=== PATIENT | female | born 1930 ===

== ENCOUNTER 2018-10-29 17:22 | Inpatient (IN) | payer MEDICARE, MEDICAID ==
[~2018-10-29] VITALS: Ht 157.5 cm; Wt 93.5 kg
[2018-10-29 23:30] VITALS: BP 95/66
--- NOTE | 2018-10-29 23:40 | NUR ---
Patient arrived from [place] via EMS to 2311, connected to monitor. Admission assessment completed per flowsheet, patient resting in bed with eyes open. Patient AO x4, answers appropriately/follows instructions. S1/S2 noted Controlled Afib on telemetry with HR 93, rare PAC with no pacing noted on telemetry. Pacemaker placed L upper chest 1 month ago, dressing CDI. L upper chest hemosplit dressing CDI, locked. Breathing is even/unlabored on 2L via NC with O2 sat 99%, lung sounds clear bilateral upper and mid with diminished lower. Abdomen is round/soft with bowel sounds active x4, non-tender. All pulses palpable with cap refill < 3 sec, skin warm/dry. Denies pain or other needs at this time, see flowsheet for details. Dr Russell paged to notify of patient arrival, awaiting return call. No further needs at this time, all VSS and will continue to monitor.
[2018-10-29 23:45] VITALS: BP 92/61
[2018-10-30] VITALS (94 sets, daily range): BP systolic 69–125; BP diastolic 22–96; Ht 157.5 cm; Wt 93.5 kg
--- NOTE | 2018-10-30 00:57 | NUR ---
Dr Howell called to notify of patient arrival, left requesting return call.
--- NOTE | 2018-10-30 01:20 | NUR ---
Spoke to Lori Carcamo via phone with new orders received, Nephrology paged to notify of consult.
--- NOTE | 2018-10-30 02:55 | NUR ---
Reassessment completed per flowsheet, no changes from previous assessment. S1/S2 noted Controlled Afib on telemetry with HR 84. Breathing is shallow on 2L via NC with O2 sat 97%, lung sounds clear bialteral upper and mid with diminished lower. L upper chest pacemaker site dressing CDI, R upper chest hemosplit locked with dressing CDI. All pulses palpable with cap refill < 3 sec, skin warm/dry. Denies pain or other needs at this time, see flowsheet for details. All VSS and will continue to montior.
[2018-10-30 04:15] LABS: BASOPHILS 0.2 % (0-2); EOSINOPHILS 0.6 % (0-7); HEMATOCRIT 23.1 % (36.0-48.0); HEMOGLOBIN 7.9 g/dL (12-16); IMMATURE GRANULOCYTES 0.2 % (0-5); LYMPHOCYTES 24.3 % (15-50); MCH 33.3 pg (26.0-34.0); MCHC 34.2 g/dL (31.0-37.0); MCV 97.5 fL (80.0-100.0); MONOCYTES 12.5 % (2-11); NEUTROPHILS 62.2 % (40-80); PLATELET COUNT 70 10x3/uL (130-400); RBC 2.37 10x6/uL (4.00-5.40); RDW 16.8 % (11.5-14.5); WBC 6.3 10x3/uL (4.8-10.8)
[2018-10-30 04:34] LABS: ALBUMIN 2.8 g/dL (3.4-5.0); ANION GAP 11.3 mmol/L (8-16); BILIRUBIN - TOTAL 2.24 mg/dL (0.2-1.3); CALCIUM 8.3 mg/dL (8.5-10.1); CARBON DIOXIDE 29.1 mmol/L (21.0-32.0); CREATININE - SERUM 3.6 mg/dL (0.6-1.3); POTASSIUM - SERUM 5.4 mmol/L (3.5-5.1); PROTEIN - SERUM 6.6 g/dL (6.4-8.2)
--- NOTE | 2018-10-30 05:00 | NUR ---
Patient sleeping in bed with eyes closed, no s/s of distress at this time. Denies pain or other needs, all VSS and will continue to monitor.
--- NOTE | 2018-10-30 07:05 | NUR ---
REPORT RECEIEVED. ASSESSMENT COMPLETE PER FLOW SHEET. VSS. NO NEW CHANGES PT RESTING COMFORTABLY WILL CONTINUE TO MONITOR
--- NOTE | 2018-10-30 07:15 | NUR ---
DR GAMBINO AT BEDSIDE. NEW ORDERS RECEIVED.
[2018-10-30 08:32] LABS: BASOPHILS 0.2 % (0-2); EOSINOPHILS 1.1 % (0-7); HEMATOCRIT 22.9 % (36.0-48.0); HEMOGLOBIN 7.9 g/dL (12-16); IMMATURE GRANULOCYTES 0.2 % (0-5); LYMPHOCYTES 23.6 % (15-50); MCH 33.9 pg (26.0-34.0); MCHC 34.5 g/dL (31.0-37.0); MCV 98.3 fL (80.0-100.0); MEAN PLATELET VOLUME 11.2 fL (7.4-10.4); MONOCYTES 14.3 % (2-11); NEUTROPHILS 60.6 % (40-80); PLATELET COUNT 76 10x3/uL (130-400); RBC 2.33 10x6/uL (4.00-5.40); RDW 17.3 % (11.5-14.5); WBC 5.3 10x3/uL (4.8-10.8)
[2018-10-30 08:43] LABS: ALBUMIN 2.9 g/dL (3.4-5.0); ANION GAP 10.7 mmol/L (8-16); BILIRUBIN - TOTAL 2.31 mg/dL (0.2-1.3); CALCIUM 8.4 mg/dL (8.5-10.1); CARBON DIOXIDE 29.6 mmol/L (21.0-32.0); CREATININE - SERUM 3.6 mg/dL (0.6-1.3); PHOSPHOROUS 4.3 mg/dL (2.5-4.9); POTASSIUM - SERUM 5.3 mmol/L (3.5-5.1); PROTEIN - SERUM 6.6 g/dL (6.4-8.2); VANCOMYCIN - RANDOM 0.6 ug/mL (10.0-20.0)
[2018-10-30 08:49] LABS: PLATELET ESTIMATE DECREASED
--- NOTE | 2018-10-30 09:20 | NUR ---
FAMILY CALLED GIVEN JOANAATE.
[2018-10-30] MEDS ORDERED: BUMEX2 MG PO (09:31)
[2018-10-30] MEDS ORDERED: PROTONIX40 MG PO (09:31)
[2018-10-30] MEDS ORDERED: BAYER CHEWABLE81 MG PO (09:31)
[2018-10-30] MEDS ORDERED: JANUVIA100 MG PO (09:32)
[2018-10-30] MEDS ORDERED: ALBUTEROL1.25 MG/3 INH (09:35)
--- NOTE | 2018-10-30 10:20 | NUR ---
DR KAM AT BEDSIDE. CARLY SINGLETON.
--- NOTE | 2018-10-30 11:05 | NUR ---
REASSESSMENT COMPLETE PER FLOW SHEET. VSS. NO NEW CHANGES PT RESTING COMFORTABLY WILL CONTINUE TO MONTIOR
[2018-10-30 11:49] LABS: INR 1.39 (0.85-1.17); PROTIME 16.5 SECONDS (11.6-15.0)
--- NOTE | 2018-10-30 13:05 | NUR ---
PT SLEEPING COMFORTABLY DENIES NEEDS GIVEN WATE PER REQUEST. VSS WILL CONTINUE TO MONITOR
--- NOTE | 2018-10-30 14:18 | NUR ---
PT ASSISTED ONTO BEDPAN
--- NOTE | 2018-10-30 15:30 | NUR ---
REASSESSMENT COMPLETE, NO CHANGES NOTED, PT RESTING COMFORTABLY AT THIS TIME, WILL CON'T TO MONITOR
--- NOTE | 2018-10-30 16:08 | MORECARE ---
CASE MANAGEMENT DISCHARGE SUMMARY PATIENT: JORGE CORDERO UNIT: [id number] ADM DATE: 10/29/18 AGE: 88 : [birth year] SEX: F ROOM/BED: D.2311 AUTHOR: SHIRLEY MEDEIROS PHYSICIAN: REFERRING PHYSICIAN: NANO LEAVITT MD DATE OF SERVICE: 10/30/18 Discharge Plan Patient Name: JORGE CORDERO Facility: [facility]:[place] : 1930 Planned Disposition: Anticipated Discharge Date: Discharge Date: Expected LOS: Initial Reviewer: [email or web address] Initial Review Date: 10/30/2018 Generated: 10/30/18 5:08 pm Patient Name: JORGE CORDERO Page [id number] at 1608 All edits/amendments must be made on the electronic document DICTATION DATE: 10/30/181606 COMPOUND COATING MACHINE OFFBEARER: FOREST 10/30/181606 RPT#: [id number] DC DATE: STATUS: ADM IN [facility] [address] [place] [address] END OF REPORT
--- NOTE | 2018-10-30 16:18 | MORECARE ---
CASE MANAGEMENT DISCHARGE SUMMARY PATIENT: JORGE CORDERO UNIT: [id number] ADM DATE: 10/29/18 AGE: 88 : [birth year] SEX: F ROOM/BED: D.2311 AUTHOR: SHIRLEY MEDEIROS PHYSICIAN: REFERRING PHYSICIAN: NANO LEAVITT MD DATE OF SERVICE: 10/30/18 Discharge Plan Patient Name: JORGE CORDERO [facility] [facility] 1930 Planned Disposition: Anticipated Discharge Date: Discharge Date: Expected LOS: Initial Reviewer: [email or web address] Initial Review Date: 10/30/2018 Generated: 10/30/18 5:18 pm DCPIA - Discharge Planning Initial Assessment Updated by [email or web address]: Savanna Dorsey on 10/30/18 4:12 pm * Is the patient Alert and Oriented? Yes * How many steps to enter\exit or inside your home? RAMP * PCP FREDI JOVEL * Pharmacy [facility] * Preadmission Environment Home with Family * ADLs Partial Dependent * Partial ADLs (Assistance needed) Ambulation * Other Equipment HOME 02, NEBULIZER , WALKER, CANE, TRAVEL W/C * List name and contact numbers for known caregivers / representatives who currently or will assist patient after discharge: daughter - [phone] * Verbal permission to speak to the caregivers and representatives has been obtained from the patient. Yes * Community resources currently utilized None * Additional services required to return to the preadmission environment? No * Can the patient safely return to the preadmission environment? Yes * Has this patient been hospitalized within the prior 30 days at any hospital? Yes Last DP export: 10/30/18 3:08 p Patient Name: JORGE CORDERO Page 44699 at 1618 All edits/amendments must be made on the electronic document DICTATION DATE: 10/30/181617 SWITCHBOARD RECEPTIONIST: FOREST 10/30/181617 RPT#: [id number] DC DATE: STATUS: ADM IN [facility] [address] [place] [address] END OF REPORT
--- NOTE | 2018-10-30 16:30 | MORECARE ---
CASE MANAGEMENT DISCHARGE SUMMARY PATIENT: JORGE CORDERO UNIT: [id number] ADM DATE: 10/29/18 AGE: 88 : [birth year] SEX: F ROOM/BED: D.2311 AUTHOR: WALDEMARDOC PHYSICIAN: REFERRING PHYSICIAN: NANO LEAVITT MD DATE OF SERVICE: 10/30/18 Discharge Plan Patient Name: JORGE CORDERO Facility: [facility]:[place] : 1930 Planned Disposition: Anticipated Discharge Date: Discharge Date: Expected LOS: Initial Reviewer: [email or web address] Initial Review Date: 10/30/2018 Generated: 10/30/18 5:30 pm Comments DCP- Discharge Planning Updated by [email or web address]: Savanna Dorsey on 10/30/18 3:[address] Patient Name: JORGE CORDERO Admission Status: Urgent Accout number: [id number] Admission Date: 10-29-2018 : 1930 Admission Diagnosis: Attending: NANO LEAVITT Current LOS: 1 Anticipated DC Date: Planned Disposition: Primary Insurance: [facility] MEDICARE SOLUTIONS Discharge Planning Comments: CM met with patient at bedside. Patient stated she lives with her daughter. Patient states she has been in and out of hospital a lot recently. Patient states she plans to return to her home. Patient states she has home 02, nebulizer, walker, cane, and travel wheelchair. Patient states she has had Home Health in past but currently not under their care. Patient denies any discharge needs at this time. CM will continue to follow and assist as needed with discharge planning / needs. Tube Builder: Savanna Dorsey DCPIA - Discharge Planning Initial Assessment Updated by [email or web address]: Savanna Dorsey on 10/30/18 4:12 pm * Is the patient Alert and Oriented? Yes * How many steps to enter\exit or inside your home? RAMP * PCP FREDI JOVEL * Pharmacy [facility] * Preadmission Environment Home with Family * ADLs Partial Dependent * Partial ADLs (Assistance needed) Ambulation * Other Equipment HOME 02, NEBULIZER , WALKER, CANE, TRAVEL W/C * List name and contact numbers for known caregivers / representatives who currently or will assist patient after discharge: DAUGHTER - [phone] * Verbal permission to speak to the caregivers and representatives has been obtained from the patient. Yes * Community resources currently utilized None * Additional services required to return to the preadmission environment? No * Can the patient safely return to the preadmission environment? Yes * Has this patient been hospitalized within the prior 30 days at any hospital? Yes Last DP export: 10/30/18 3:18 p Patient Name: JORGE CORDERO Page 82712 at 1630 All edits/amendments must be made on the electronic document DICTATION DATE: 10/30/181628 HEALTH PRACTICE MANAGER: FOREST 10/30/181628 RPT#: [id number] DC DATE: STATUS: ADM IN [facility] [address] [place] [address] END OF REPORT
--- NOTE | 2018-10-30 17:30 | NUR ---
HD NURSE AT BEDSIDE, HS STARTED
[2018-10-31] VITALS (65 sets, daily range): BP systolic 64–118; BP diastolic 36–78
[2018-10-31 02:55] LABS: BASOPHILS 0.3 % (0-2); HEMATOCRIT 24.8 % (36.0-48.0); HEMOGLOBIN 8.7 g/dL (12-16); IMMATURE GRANULOCYTES 0.1 % (0-5); LYMPHOCYTES 20.7 % (15-50); MCH 34.5 pg (26.0-34.0); MCHC 35.1 g/dL (31.0-37.0); MCV 98.4 fL (80.0-100.0); MEAN PLATELET VOLUME 11.8 fL (7.4-10.4); MONOCYTES 16.6 % (2-11); NEUTROPHILS 61.3 % (40-80); PLATELET COUNT 52 10x3/uL (130-400); RBC 2.52 10x6/uL (4.00-5.40)
[2018-10-31 03:06] LABS: ALBUMIN 2.9 g/dL (3.4-5.0); ANION GAP 12.1 mmol/L (8-16); BILIRUBIN - TOTAL 2.28 mg/dL (0.2-1.3); CALCIUM 8.5 mg/dL (8.5-10.1); CARBON DIOXIDE 28.6 mmol/L (21.0-32.0); CREATININE - SERUM 2.7 mg/dL (0.6-1.3); MAGNESIUM - SERUM 2.2 mg/dL (1.8-2.4); PHOSPHOROUS 3.5 mg/dL (2.5-4.9); POTASSIUM - SERUM 4.7 mmol/L (3.5-5.1); PROTEIN - SERUM 6.8 g/dL (6.4-8.2)
--- NOTE | 2018-10-31 07:10 | NUR ---
PATIENT IN BED IN LOW FOWLERS POSITION. ALERT AND ORIENTED X4. VITAL SIGNS STABLE AND AFEBRILE. RESPIRATIONS EVEN AND UNLABORED. NO VISUAL CUES OF DISTRESS NOTED. DENIES ANY OTHER NEEDS AT THIS TIME. BED LOW, SIDE RAILS UP X2. CALL LIGHT IN REACH. WILL CONTINUE TO MONITOR.
--- NOTE | 2018-10-31 07:15 | NUR ---
REPORT RECEIVED. ASSESSMENT COMPLETE PER FLOW SHEET. VSS. PT ASSISTED ONTO BEDPAN 75 CC DARK MANUEL VOID NOTED.
--- NOTE | 2018-10-31 07:40 | NUR ---
COMPLETE BB LINEN CHANGE ADM. DENIES FURTHER NEEDS
--- NOTE | 2018-10-31 09:11 | NUR ---
NUTRITION F/U PT SLEEPING. NURSING REPORTS PT WITH 75% INTAKE BREAKFAST. WILL CONTINUE TO PROVIDE DIET, MONITOR PO INTAKE. RD FOLLOWING
--- NOTE | 2018-10-31 10:49 | NUR ---
[place] OFFICE PAGED GIVEN UPDATE REGAURDING CONSULT
--- NOTE | 2018-10-31 11:00 | NUR ---
REASSESSMENT COMPLETE PER FLOW SHEET. VSS. NONEW CHANGES WILL CONTINUE TO MONIOR
[2018-10-31 12:04] LABS: % SATURATION 29 % (15-55); IRON 62 ug/dl (35-150); TOTAL IRON BIND CAPACITY 208 ug/dl (260-445); UNSAT IRON BIND CAPACITY 146 ug/dl (150-375)
--- NOTE | 2018-10-31 13:00 | NUR ---
MATERNAL CHILD NURSE WITH CARDIOLOGY AT BEDSIDE. GIVEN UPDATE. NEW ORDERS RECEIVED.
--- NOTE | 2018-10-31 15:00 | NUR ---
REASSESSMENT COMPLETE PER FLOW SHEET. VSS. NO NEW CHANGES WILL CONTINUE TO MONITOR
--- NOTE | 2018-10-31 17:00 | NUR ---
ATE 75% DINNER. DENIES NEEDS. WILL CONTINUE TO MONITOR
[2018-11-01] VITALS (56 sets, daily range): BP systolic 84–130; BP diastolic 40–81
--- NOTE | 2018-11-01 01:03 | NUR ---
PT REPOSITIONED FOR COMFORT SUPPORTED WITH PILLOWS, BARRIER CREAM APPLIED TO BUTTOCK AREA FOR PT COMFORT, VSS, CONT POC.
[2018-11-01 02:40] LABS: EOSINOPHILS 1.2 % (0-7); HEMATOCRIT 20.5 % (36.0-48.0); LYMPHOCYTES 23.9 % (15-50); MCHC 35.1 g/dL (31.0-37.0); MCV 96.7 fL (80.0-100.0); MEAN PLATELET VOLUME 10.5 fL (7.4-10.4); MONOCYTES 16.6 % (2-11); NEUTROPHILS 54.3 % (40-80); PLATELET COUNT 54 10x3/uL (130-400); RBC 2.12 10x6/uL (4.00-5.40); RDW 16.5 % (11.5-14.5); WBC 7.3 10x3/uL (4.8-10.8)
[2018-11-01 02:41] LABS: HEMOGLOBIN 7.6 g/dL (12-16)
[2018-11-01 02:43] LABS: ALBUMIN 2.6 g/dL (3.4-5.0); ANION GAP 13.2 mmol/L (8-16); BILIRUBIN - TOTAL 1.59 mg/dL (0.2-1.3); CALCIUM 7.9 mg/dL (8.5-10.1); CARBON DIOXIDE 27.8 mmol/L (21.0-32.0); CREATININE - SERUM 3.3 mg/dL (0.6-1.3); MAGNESIUM - SERUM 2.1 mg/dL (1.8-2.4); PHOSPHOROUS 4.6 mg/dL (2.5-4.9); PROTEIN - SERUM 6.3 g/dL (6.4-8.2)
--- NOTE | 2018-11-01 07:00 | NUR ---
REC'D CARE OF PT. A&O X3.
--- NOTE | 2018-11-01 08:13 | NUR ---
UPDATED DAUGHTER VIA PHONE AFTER SPEAKING WITH PT. TO CLARIFY IT WAS OK TO DO SO.
--- NOTE | 2018-11-01 08:30 | NUR ---
REQUESTED BED MEANS. HAD 150 CC CONCENTRATED URINE. PERICARE PERFORMED. PARTIAL LINEN CHANGED. CLWR. CPOC.
--- NOTE | 2018-11-01 10:15 | NUR ---
CONTINUES WITH HD. TITRATING LEVOPHED TO EFFECT.
[2018-11-01 11:11] LABS: FOLATE (FOLIC ACID) - SERUM 14.1 ng/mL (>3.0)
--- NOTE | 2018-11-01 11:50 | NUR ---
LUNCH TRAY SERVED. CONTINUES BEING DIALYSED. LEVOPHED BEING TITRATED TO EFFECT.
--- NOTE | 2018-11-01 12:14 | NUR ---
DIGOXIN GIVEN PER ORDERS.
--- NOTE | 2018-11-01 12:57 | NUR ---
DAUGHTER AT BEDSIDE ASSISTING WITH MEAL.
--- NOTE | 2018-11-01 14:09 | NUR ---
FAMILY AT BEDSIDE. UPDATED BY PT.
--- NOTE | 2018-11-01 15:37 | NUR ---
TITRATING LEVOPHED TO EFFECT.
--- NOTE | 2018-11-01 19:30 | NUR ---
RESUMED CARE OF PT, ASSESSMENT PER FLOWSHEET. PT POSITIONED FOR COMFORT SUPPORTED WITH PILLOWS, CALL LIGHT IN REACH, BED LOW.
[2018-11-01 21:31] LABS: APPEARANCE HAZY (CLEAR); BILIRUBIN NEGATIVE (NEGATIVE); COLOR DK YELLOW (YELLOW); GLUCOSE NEGATIVE (NEGATIVE); KETONE NEGATIVE (NEGATIVE); NITRITE NEGATIVE (NEGATIVE); PROTEIN 1+ mg/dL (NEGATIVE); SPECIFIC GRAVITY 1.025 (1.005-1.020); UROBILINOGEN NORMAL (NORMAL)
[2018-11-01 21:35] LABS: EPITHELIAL CELLS 0-5 /hpf (0-5)
[2018-11-01 21:36] LABS: BACTERIA MANY /hpf (NONE SEEN)
[2018-11-01 21:40] LABS: MUCUS <1+ /lpf (NONE SEEN); YEAST >1+ /hpf (NONE SEEN)
--- NOTE | 2018-11-01 21:45 | NUR ---
PT DAUGHTER CALLED, PASSWORD PROVIDED, UPDATE GIVEN.
[2018-11-01 22:00] LABS: CREATININE - URINE 195.9 mg/dL (30-125)
[2018-11-02] VITALS (36 sets, daily range): BP systolic 72–120; BP diastolic 42–81
--- NOTE | 2018-11-02 00:55 | NUR ---
PT REPOSITIONED FOR COMFORT SUPPORTED WITH PILLOWS, VSS, CONT TO MONITOR.
[2018-11-02 03:38] LABS: BASOPHILS 0.3 % (0-2); EOSINOPHILS 1.2 % (0-7); HEMATOCRIT 23.5 % (36.0-48.0); HEMOGLOBIN 8.1 g/dL (12-16); LYMPHOCYTES 22.9 % (15-50); MCH 33.6 pg (26.0-34.0); MCHC 34.5 g/dL (31.0-37.0); MCV 97.5 fL (80.0-100.0); MEAN PLATELET VOLUME 11.1 fL (7.4-10.4); NEUTROPHILS 59.6 % (40-80); PLATELET COUNT 59 10x3/uL (130-400); RBC 2.41 10x6/uL (4.00-5.40); RDW 16.2 % (11.5-14.5); WBC 6.1 10x3/uL (4.8-10.8)
[2018-11-02 03:55] LABS: ALBUMIN 2.6 g/dL (3.4-5.0); BILIRUBIN - TOTAL 1.51 mg/dL (0.2-1.3); CALCIUM 7.9 mg/dL (8.5-10.1); CARBON DIOXIDE 27.6 mmol/L (21.0-32.0); CREATININE - SERUM 2.9 mg/dL (0.6-1.3); MAGNESIUM - SERUM 2.1 mg/dL (1.8-2.4); PHOSPHOROUS 3.7 mg/dL (2.5-4.9); PROTEIN - SERUM 6.5 g/dL (6.4-8.2)
[2018-11-02 04:01] LABS: ANION GAP 10.4 mmol/L (8-16)
--- NOTE | 2018-11-02 04:26 | NUR ---
COMPLETE BATH AND LINEN CHANGE DONE, BARRIER CREAM APPLIED TO BUTTOCK AREA PER PT REQUEST FOR COMFORT, VSS, CONT TO MONITOR.
--- NOTE | 2018-11-02 08:00 | NUR ---
REC'D EYES CLOSED/ AWAKENS EASILY. ASSESSMENT DONE. C/O ABD DISCOMFORT D/T CONSTIPATION.
--- NOTE | 2018-11-02 08:46 | NUR ---
C/O NAUSEA. ZOFRAN GIVEN.
--- NOTE | 2018-11-02 10:39 | EC ---
PATIENT:JORGE CORDERO DATE OF SERVICE: 10/29/18 SEX: F MEDICAL RECORD: [id number] DATE OF : [birth year] LOCATION:[facility] AGE OF PATIENT: 88 ADMISSION DATE: 10/29/18 REFERRING PHYSICIAN: INTERPRETING PHYSICIAN: MELO GROVES MD ECHOCARDIOGRAM REPORT ECHO CHARGES 4 ECHO COMPLETE Date: 10/30/18 CLINICAL DIAGNOSIS: CHF ECHOCARDIOGRAPHIC MEASUREMENTS (adult normal given) AC root (d.<3.7cm) 2.8 cm LV Septum d (<1.2 cm> 1.9 cm Valve Excursion 1.7 cm LV Septum (systole) 2.0 cm Left Atria (s.<4.0cm> 4.9 cm LVPW d(<1.2cm) 1.4 cm RV (d.<2.3cm) 3.0 cm LVPW (sytole) 1.6 cm LV diastole(<5.6CM) 4.7 cm MV E-F(>70mm/sec) cm LV systole 3.2 cm LVOT Diameter 1.7 cm MV exc.(>10mm) cm Est.ejection fraction (50-75%) % DOPPLER: LVIT cm/sec A cm/sec E 82.0 cm/sec LA cm/sec RVSP 24.1 mmHg LVOT 68.0 cm/sec AOP1/2T m/s Asc. Ao 118 cm/sec RVOT 82.0 cm/sec RA cm/sec PA 67.0 cm/sec AV Gradient Peak 5.6 mmHg AV Mean 3.2 mmHg AV Area 1.0 cm MV Gradient Peak 3.3 mmHg MV Mean 1.2 mmHg MV Area cm COMMENTS: Helicopter Pilot: 1 GLADYS GILOE Crusher Feeder: 3 Dr. Romero TAPE# PACS Pericardial Effusion Y DATE OF SERVICE: Adequate 2-D, color-flow and spectral Doppler, and M-mode. LVH is present. LV internal dimensions are normal. 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 Estimated EF is 30% to 35%. Aortic valve sclerosis without stenosis by Doppler interrogation. Left atrium is dilated at 4.9 cm. Mitral valve is thickened. Mild MR. Right-sided chambers are grossly normal. Moderate TR by color-flow imaging. ECHOCARDIOGRAM REPORT [id number] JORGE CORDERO TRANSINT:[id number] Voice Confirmation ID: [id number] DOCUMENT ID: [id number] MELO GROVES MD at 1039 CC: [id number] DICTATION DATE: 10/30/18 145 SLICER MACHINE OPERATOR: 10/30/181921 ADM IN [facility] [address] [place] [id number]
--- NOTE | 2018-11-02 12:00 | NUR ---
REASSESSED W/O CHANGES. ONTO BEDPAN- NO BM SMALL AMT DK MANUEL URINE.
--- NOTE | 2018-11-02 14:00 | NUR ---
VISITORS AT BEDSIDE. REPOSITIONED. VSS
--- NOTE | 2018-11-02 18:15 | NUR ---
GIVEN MAG CITRATE FOR CONSTIPATION.
--- NOTE | 2018-11-02 18:53 | NUR ---
GIVEN ZOFRAN FOR C/O NAUSEA.
[2018-11-03] VITALS (14 sets, daily range): BP systolic 91–113; BP diastolic 43–67
[2018-11-03 05:53] LABS: BASOPHILS 0.4 % (0-2); EOSINOPHILS 1.3 % (0-7); HEMATOCRIT 24.6 % (36.0-48.0); HEMOGLOBIN 8.5 g/dL (12-16); IMMATURE GRANULOCYTES 0.2 % (0-5); LYMPHOCYTES 24.4 % (15-50); MCH 33.6 pg (26.0-34.0); MCHC 34.6 g/dL (31.0-37.0); MCV 97.2 fL (80.0-100.0); MEAN PLATELET VOLUME 10.3 fL (7.4-10.4); NEUTROPHILS 61.7 % (40-80); PLATELET COUNT 88 10x3/uL (130-400); RBC 2.53 10x6/uL (4.00-5.40); RDW 16.4 % (11.5-14.5); WBC 5.3 10x3/uL (4.8-10.8)
[2018-11-03 06:15] LABS: ALBUMIN 2.9 g/dL (3.4-5.0); ANION GAP 11.7 mmol/L (8-16); BILIRUBIN - TOTAL 1.32 mg/dL (0.2-1.3); CALCIUM 8.3 mg/dL (8.5-10.1); CARBON DIOXIDE 26.6 mmol/L (21.0-32.0); MAGNESIUM - SERUM 2.4 mg/dL (1.8-2.4); PHOSPHOROUS 4.1 mg/dL (2.5-4.9); POTASSIUM - SERUM 4.3 mmol/L (3.5-5.1)
--- NOTE | 2018-11-03 07:00 | NUR ---
REC'D ON BEDPAN- LARGE AMT BROWN HARD- FORMED W/ SOME LOOSE/LIQUID STOOL.
--- NOTE | 2018-11-03 08:00 | NUR ---
ASSESSED, VSS. NO C/O- DENIES PAIN OR DISCOMFORT. STATES ABD FEELS BETTER.
[2018-11-03 08:34] LABS: PLATELET ESTIMATE DECREASED; PLATELET MORPHOLOGY NORMAL PLT MORPH
--- NOTE | 2018-11-03 09:45 | NUR ---
LARGE AMT THICK LIQUID BM PER BEDPAN, BUTTPASTE TO SACRAL AREA.
--- NOTE | 2018-11-03 09:46 | NUR ---
NUTRITION F/U CHART REVIEWED. PT RESTING. NURSING REPORTS PT WITH GOOD INTAKE MEALS. WILL CONTINUE TO PROVIDE DIET, MONITOR INTAKE. RD FOLLOWING
--- NOTE | 2018-11-03 12:00 | NUR ---
REASSESSED W/O CHANGES. BECOMES TEARFUL WHEN TOLD FAMILY CALLED- SHE MISSES THEM.
--- NOTE | 2018-11-03 17:32 | NUR ---
REPORT CALLED TO PK JENSEN.
--- NOTE | 2018-11-03 17:52 | NUR ---
ARRIVE TO ROOM VIA RECLINER FROM ICU. ALERT AND ORIENTED X4. FEET ELEVATED. FEET EDEMATOUS BILATERALLY. RT CHEST HEMOSPLIT DRESSING CLEAN DRY INTACT. CONTINUE PLAN OF CARE AND SAFETY PRECAUTIONS.
--- NOTE | 2018-11-03 19:05 | NUR ---
ALERT/AWAKE ORIENTED X 3. TALKING ON PHONE. DENIES PAIN OR ANY NEEDS. RT CHEST HEMESPLIT DRSG C/D/I. RR 18 EVEN U/L ON ROOM AIR. TELEMETRY SHOWS 73 SR. LEFT CHEST PACEMAKER NOTED. PLACED CALL LIGHT IN REACH. LEFT DOOR OPEN TO MONITOR CLOSELY.
--- NOTE | 2018-11-03 21:20 | NUR ---
ADMIN PEPCID 20 MG IV. REMOVED HEPARIN 2 CC FROM HEMESPLIT BLUE PORT, FLUSHED WITH 5CC SALINE FLUSH, ADMIN PEPCID, FLUSHED AGAIN WITH 5CC SALINE FLUSH THEN HEPARINIZED BLUE PORT WITH 1.8ML (1800 UNITS) HEPARIN. TOOK A FEW SIPS OF ICE WATER. STATED HER BOTTOM HURT. REPOSITIONED TO RIGHT SIDE WITH PILLOW TO HER BACK AND BETWEEN HER KNEES. STATED SHE FELT BETTER.
[2018-11-04 01:17] VITALS: BP 106/48
--- NOTE | 2018-11-04 02:29 | NUR ---
AWAKE C/O BEING HOT AND NEEDING TO SIT UP. ADJ HOB UP TO 90 DEGREES. TURNED DOWN AC. GOT A FAN TO BLOW ON HER. C/O NOT BEING ABLE TO BREATHE AND PUT HER ON 02 AT 2L/NC.
--- NOTE | 2018-11-04 04:08 | NUR ---
REPOSITIONED UP IN BED WITH ANOTHER NURSE ASSISTING. REQUESTED ASSISTANCE WITH TURNING TV CHANNEL. NO OTHER NEEDS VOICED.
[2018-11-04 05:53] VITALS: BP 104/48
[2018-11-04 06:00] LABS: BASOPHILS 0.5 % (0-2); EOSINOPHILS 1.2 % (0-7); HEMATOCRIT 24.1 % (36.0-48.0); HEMOGLOBIN 8.5 g/dL (12-16); IMMATURE GRANULOCYTES 0.2 % (0-5); LYMPHOCYTES 25.9 % (15-50); MCH 33.9 pg (26.0-34.0); MCHC 35.3 g/dL (31.0-37.0); MEAN PLATELET VOLUME 10.9 fL (7.4-10.4); MONOCYTES 14.9 % (2-11); NEUTROPHILS 57.3 % (40-80); RBC 2.51 10x6/uL (4.00-5.40); RDW 16.2 % (11.5-14.5); WBC 4.3 10x3/uL (4.8-10.8)
[2018-11-04 06:23] LABS: PLATELET COUNT 108 10x3/uL (130-400)
[2018-11-04 06:49] LABS: ALBUMIN 2.9 g/dL (3.4-5.0); ANION GAP 13.3 mmol/L (8-16); BILIRUBIN - TOTAL 1.36 mg/dL (0.2-1.3); CALCIUM 8.1 mg/dL (8.5-10.1); CARBON DIOXIDE 26.2 mmol/L (21.0-32.0); CREATININE - SERUM 3.3 mg/dL (0.6-1.3); MAGNESIUM - SERUM 2.4 mg/dL (1.8-2.4); PHOSPHOROUS 4.3 mg/dL (2.5-4.9); POTASSIUM - SERUM 4.5 mmol/L (3.5-5.1); PROTEIN - SERUM 6.7 g/dL (6.4-8.2)
[2018-11-04 10:04] VITALS: BP 123/65
--- NOTE | 2018-11-04 13:58 | NUR ---
RETURN TO ROOM FROM DIALYSIS. FAMILY AT BEDSIDE. ASSIST PULLING UP IN BED. CONTROLLED AFIB 87 ON TELEMETRY. DENIES ANY OTHER NEEDS. CONTINUE PLAN OF CARE AND SAFETY PRECAUTIONS.
--- NOTE | 2018-11-04 19:22 | NUR ---
PT INCONT A LARGE AMOUNT INTO BREIF. CLEANED PT AND CHANGED PADS. PT REPOSITIONED TO LEFT SIDE. FEET ELEVATED EDEMA NOTED. PT HAS NO S/S OF DISTRESS. DENIES ANY OTHER NEEDS. NAME AND DATE PLACED ON BOARD. BEDLOW AND CALL LIGHT IN REACH. WILL CPOC
[2018-11-04 20:35] VITALS: BP 85/64
--- NOTE | 2018-11-04 23:21 | NUR ---
RIGHT CHEST HEMESPLIT ACCESSED FOR PEPCID AND S/L PER PROTOCOL OF HEMESPLITS. PT IS NOW ON RIGHT SIDE. DENIES ANY NEEDS. FSBS IS 117 NO S/S OF DISTRESS. SNACK OFFERED. PT WILL CALL FOR ASSIST WHEN NEEDED.WILL CPOC
[2018-11-05 00:09] VITALS: BP 96/43
--- NOTE | 2018-11-05 02:58 | NUR ---
REPOSITIONED PT. NO S/S OF DISTRESS. DENIES ANY NEEDS. WILL CPOC
[2018-11-05 05:08] VITALS: BP 99/49
--- NOTE | 2018-11-05 05:40 | NUR ---
TYLENOL GIVEN FOR PAIN IN LEFT ARM, MORNING BUMEX GIVEN. MORNING LABS DRAWN THROUGH HEMESPLIT. FOLLOWING PROPER PRECAUTIONS. PT REPOSITIONED TO BACK. PULLED UP IN BED. PT DENIES ANY NEEDS. NO S/S OF DISTRESS. WILL CPOC
[2018-11-05 05:55] LABS: BASOPHILS 0.5 % (0-2); HEMATOCRIT 23.2 % (36.0-48.0); HEMOGLOBIN 8.2 g/dL (12-16); LYMPHOCYTES 25.5 % (15-50); MCHC 35.3 g/dL (31.0-37.0); MCV 96.3 fL (80.0-100.0); MEAN PLATELET VOLUME 11.4 fL (7.4-10.4); MONOCYTES 17.3 % (2-11); NEUTROPHILS 55.7 % (40-80); PLATELET COUNT 104 10x3/uL (130-400); RBC 2.41 10x6/uL (4.00-5.40); RDW 16.3 % (11.5-14.5); WBC 3.9 10x3/uL (4.8-10.8)
--- NOTE | 2018-11-05 06:25 | NUR ---
PT FSBS IS 91 SNACK OFFERED. PT HAS NO S/S OF DISTRESS. WILL CPOC
[2018-11-05 06:29] LABS: ANION GAP 11.4 mmol/L (8-16); CALCIUM 7.9 mg/dL (8.5-10.1); CARBON DIOXIDE 28.5 mmol/L (21.0-32.0); CREATININE - SERUM 2.7 mg/dL (0.6-1.3); POTASSIUM - SERUM 3.9 mmol/L (3.5-5.1)
--- NOTE | 2018-11-05 07:10 | NUR ---
REPORT RECEIVED FROM DRYING CAN WORKER. PATIENT LAYING IN BED ON BACK WITH EYES CLOSED AND BREATHING EVENLY. VSS. WILL CONTINUE WITH PLAN OF CARE. SR UP X 2 BED IN LOW POSITION AND CALL LIGHT INREACH.
[2018-11-05 09:45] VITALS: BP 99/33
--- NOTE | 2018-11-05 10:00 | NUR ---
NEW ORDER FOR CONTACT ISOLATION FOR ECOLI IN URINE. PRECAUTIONS IN PLACE. WILL CONTINUE TO MONITOR.SR UP X 2 BED IN LOW POSITON AND CALL LIGHT IN REACH.
--- NOTE | 2018-11-05 14:30 | NUR ---
PATIENT STABLE AND UNCHANGED. WILL CONTINUE TO MONITOR.
[2018-11-05 18:31] VITALS: BP 100/78
--- NOTE | 2018-11-05 20:10 | NUR ---
RESUMING PT CARE. PT ALERT LAYING IN BED. NO C/O VOICED. RESPIRATIONS EVEN AND UNLABORED. NO ACUTE S/S OF DISTRESS NOTED. PT HAS A RIGHT HEMESPLIT IN CHEST. PT IS ON 2 LITERS OF OXYGEN. BED IN LOW POSITION WITH CALL LIGHT IN REACH. WILL CONTINUE TO MONITOR PT AND FOLLOW PLAN OF CARE.
[2018-11-05 22:36] VITALS: BP 101/49
--- NOTE | 2018-11-06 04:23 | NUR ---
I have reviewed this patient and I concur with the Shift Assessment completed by the Licensed Practical Nurse today this shift.
[2018-11-06 05:59] LABS: BASOPHILS 0.2 % (0-2); HEMATOCRIT 23.6 % (36.0-48.0); HEMOGLOBIN 8.3 g/dL (12-16); IMMATURE GRANULOCYTES 0.2 % (0-5); LYMPHOCYTES 31.8 % (15-50); MCH 33.6 pg (26.0-34.0); MCHC 35.2 g/dL (31.0-37.0); MCV 95.5 fL (80.0-100.0); MEAN PLATELET VOLUME 11.1 fL (7.4-10.4); NEUTROPHILS 51.8 % (40-80); RBC 2.47 10x6/uL (4.00-5.40); RDW 16.1 % (11.5-14.5); WBC 4.5 10x3/uL (4.8-10.8)
[2018-11-06 06:06] VITALS: BP 107/51
[2018-11-06 06:16] LABS: ANION GAP 12.7 mmol/L (8-16); CALCIUM 8.2 mg/dL (8.5-10.1); CARBON DIOXIDE 28.4 mmol/L (21.0-32.0); CREATININE - SERUM 3.2 mg/dL (0.6-1.3); POTASSIUM - SERUM 4.1 mmol/L (3.5-5.1)
[2018-11-06 06:20] LABS: PLATELET COUNT 140 10x3/uL (130-400)
--- NOTE | 2018-11-06 07:10 | NUR ---
REPROT RECIEVED FROM MEDICAL CENTER MANAGER. PATIENT LAYING IN BED ON BACK WITH HOB ELEVATED 30 DEGREES AWAKE, ALERT AND ORIENTED X 4. VSS. PATIENT DENIES ANY NEEDS OR PAIN. WILL CONTINUE WITH PLAN OF CARE. SR UP X 2 BED IN LOW POSITION AND CALL LIGHT IN REACH.
[2018-11-06 09:06] VITALS: BP 105/36
--- NOTE | 2018-11-06 12:03 | NUR ---
Nutrition follow-up: Diet: Renal PO intake ~25-50% of most meals; appetite is poor Pt has been on dialysis for 1 week now with no renal recovery at this time Labs reviewed +BM Wt: 205# Will continue to provide food choices and honor food preferences. RDN will order Nepro with meals. RDN following.
[2018-11-06 13:02] VITALS: BP 105/48
--- NOTE | 2018-11-06 14:30 | NUR ---
PATIENT UP TO BEDSIDE CHAIR PER PT. PATIENT TOLERATING WELL. VSS. PATIENT DENIES ANY PAIN OR NEEDS. WILL CONTINUE TO MONITOR. CALL LIGHT IN REACH.
[2018-11-06 18:32] VITALS: BP 94/39
[2018-11-06 20:00] VITALS: BP 113/48
--- NOTE | 2018-11-06 20:15 | NUR ---
RESUMING PT CARE. PT IS ALERT LAYING IN BED. NO C/O VOICED . NO ACUTE S/S OF DISTRESS NOTED. BED IN LOW POSITION WITH CALL LIGHT IN REACH. WILL CONTINUE TO FOLLOW PLAN OF CARE.
[2018-11-07] VITALS: BP 108/41
--- NOTE | 2018-11-07 03:26 | NUR ---
I have reviewed this patient and I concur with the Shift Assessment completed by the Licensed Practical Nurse today this shift.
[2018-11-07 04:00] VITALS: BP 133/56
[2018-11-07 05:44] LABS: ANION GAP 11.6 mmol/L (8-16); CARBON DIOXIDE 27.2 mmol/L (21.0-32.0); POTASSIUM - SERUM 3.8 mmol/L (3.5-5.1)
[2018-11-07 05:46] LABS: BASOPHILS 0.5 % (0-2); EOSINOPHILS 1.1 % (0-7); HEMATOCRIT 22.7 % (36.0-48.0); HEMOGLOBIN 8.1 g/dL (12-16); IMMATURE GRANULOCYTES 0.3 % (0-5); LYMPHOCYTES 32.4 % (15-50); MCH 33.9 pg (26.0-34.0); MCHC 35.7 g/dL (31.0-37.0); MONOCYTES 19.5 % (2-11); NEUTROPHILS 46.2 % (40-80); PLATELET COUNT 117 10x3/uL (130-400); RBC 2.39 10x6/uL (4.00-5.40); RDW 15.9 % (11.5-14.5); WBC 3.6 10x3/uL (4.8-10.8)
--- NOTE | 2018-11-07 07:10 | NUR ---
REPORT RECIEVED FROM PROVIDER RELATIONS COORDINATOR. PATIENT CARE ASSUMED. PATIENT LAYING IN BED ON BACK WITH HOB ELEVATED 35 DEGREES. PATIENT IS AWAKE, ALERT AND ORIENTED X 4. PATIENT DENIES ANY NEEDS OR PAIN. WILL CONTINUE WITH PLAN OF CARE. SR UP X 2 BED IN LOW POSITION AND CALL LIGHT IN REACH.
[2018-11-07 10:15] VITALS: BP 104/62
--- NOTE | 2018-11-07 13:50 | NUR ---
PATIENT IS STABLE AND VSS.PATIENT DENIES ANY NEEDS OR PAIN. PREOP MEDS GIVEN PER MAR. WILL CONTINUE TO MONITOR. SR UP X 2 BED IN LOW POSITION AND CALL LIGHT IN REACH.
--- NOTE | 2018-11-07 15:12 | NUR ---
ORDERS RECEIVED TO TRANSFUSE ONE UNIT PRBC'S. PRE-INFUSION VSS AND PATIENT IS STABLE. INFUSION STARTED. STAYED IN PATIENT ROOM FOR 20 MINUTES. PATIENT IS STABLE AND VSS. PATIENT DENIES ANY NEEDS OR PAIN . WILL CONTINUE TO MONITOR. SR UP X 2 BED IN LOW POSITION AND CALL LIGHT IN REACH.
--- NOTE | 2018-11-07 16:00 | NUR ---
PATIENT IS STABLE AND VSS. BLOOD INFUSING. PATIENT IS RESTING COMFORTABLY WITH EYES CLOSED AND BREATHING EVENLY. WILL CONTINUE TO MONITOR. SR UP X 2 BED IN LOW POSITION AND CALL LIGHT IN REACH.
--- NOTE | 2018-11-07 16:52 | NUR ---
INFUSION COMPLETE. POST INFUSION VSS. PATIENT RESTING COMFORTABLY . WILL CONTINUE TO MONITOR. SR UP X 2 BED IN LOW POSITION AND CALL LIGHT IN REACH.
--- NOTE | 2018-11-07 17:21 | MORECARE ---
CASE MANAGEMENT DISCHARGE SUMMARY PATIENT: JORGE CORDERO UNIT: [id number] ADM DATE: 10/29/18 AGE: 88 : [birth year] SEX: F ROOM/BED: D.2103 AUTHOR: WALDEMARDOC PHYSICIAN: REFERRING PHYSICIAN: NANO LEAVITT MD DATE OF SERVICE: 11/07/18 Discharge Plan Patient Name: JORGE CORDERO Facility: [facility]:[place] : 1930 Planned Disposition: Event Marketing Specialist Acute Care Facility Anticipated Discharge Date: 11/10/18 Discharge Date: Expected LOS: 12 Initial Reviewer: [email or web address] Initial Review Date: 10/30/2018 Generated: 11/07/18 6:20 pm DCP- Discharge Planning Updated by [email or web address]: Savanna Dorsey on 10/30/18 3:[address] Patient Name: JORGE CORDERO Admission Status: Urgent Accout number: [id number] Admission Date: 10-29-2018 : 1930 Admission Diagnosis: Attending: NANO LEAVITT Current LOS: 1 Anticipated DC Date: Planned Disposition: Primary Insurance: [facility] MEDICARE SOLUTIONS Discharge Planning Comments: CM met with patient at bedside. Patient stated she lives with her daughter. Patient states she has been in and out of hospital a lot recently. Patient states she plans to return to her home. Patient states she has home 02, nebulizer, walker, cane, and travel wheelchair. Patient states she has had Home Health in past but currently not under their care. Patient denies any discharge needs at this time. CM will continue to follow and assist as needed with discharge planning / needs. Heavy Duty Truck Mechanic: Savanna Dorsey DCPIA - Discharge Planning Initial Assessment Updated by [email or web address]: Savanna Dorsey on 10/30/18 4:12 pm * Is the patient Alert and Oriented? Yes * How many steps to enter\exit or inside your home? RAMP * PCP FREDI JOVEL * Pharmacy [facility] * Preadmission Environment Home with Family * ADLs Partial Dependent * Partial ADLs (Assistance needed) Ambulation * Other Equipment HOME 02, NEBULIZER , WALKER, CANE, TRAVEL W/C * List name and contact numbers for known caregivers / representatives who currently or will assist patient after discharge: DAUGHTER - [phone] * Verbal permission to speak to the caregivers and representatives has been obtained from the patient. Yes * Community resources currently utilized None * Additional services required to return to the preadmission environment? No * Can the patient safely return to the preadmission environment? Yes * Has this patient been hospitalized within the prior 30 days at any hospital? Yes External Providers External Provider: OTHER-OTHER Next Contact Date: 11/07/2018 Service Request Date: Service Type: Resolution: Reviewer: Comments: Last DP export: 10/30/18 3:30 p Patient Name: JORGE CORDERO Page 32572 at 1721 All edits/amendments must be made on the electronic document DICTATION DATE: 11/07/181719 JAILER/TRAINING OFFICER: FOREST 11/07/181719 RPT#: [id number] DC DATE: STATUS: ADM IN [facility] [address] [place] [address] END OF REPORT
[2018-11-07 17:36] VITALS: BP 125/62
--- NOTE | 2018-11-07 17:57 | MORECARE ---
CASE MANAGEMENT DISCHARGE SUMMARY PATIENT: JORGE CORDERO UNIT: [id number] ADM DATE: 10/29/18 AGE: 88 : [birth year] SEX: F ROOM/BED: D.2103 AUTHOR: WALDEMAR,DOC PHYSICIAN: REFERRING PHYSICIAN: NANO LEAVITT MD DATE OF SERVICE: 11/07/18 Discharge Plan Patient Name: JORGE CORDERO Facility: [facility]:[place] : 1930 Planned Disposition: Candy Attendant Acute Care Facility Anticipated Discharge Date: 11/10/18 Discharge Date: Expected LOS: 12 Initial Reviewer: [id number] Initial Review Date: 10/30/2018 Generated: 11/07/18 6:57 pm Comments DCP- Discharge Planning Updated by [id number]: Denis Flynn on 11/07/18 4:[address] Patient Name: JORGE CORDERO Encounter No: [id number] : 1930 Primary Insurance: [facility] [employer] SOL[employer]IONS Anticipated DC Date: 11-10-2018 Planned Disposition: [facility]pc Acute Care Facility External Planned Provider: [facility] DCP follow-up note: CM RECEIVED LTACH ORDER, MET WITH PT IN ROOM AND DISCUSSED [facility] ([facility]), LOCATIONS AND PROVIDERS. PT REPORTS SHE WANTS TO GO BACK TO [facility] IN [place]. CM ADVISED THAT CM WILL SEND REFERRAL, PT STATES "THEY SAID THEY WOULD TAKE ME BACK". CM EXPLAINED THAT [facility] WILL HAVE TO EVALUATE AND SUBMIT TO PT'S INSURANCE FOR APPROVAL. PT STATES UNDERSTANDING. IMPORTANT MESSAGE FROM MEDICARE PROVIDED AND EXPLAINED. CM CALLED [facility], , SPOKE TO DIANDRA WHO INFORMED CM THAT THEY WILL SCREEN FOR ADMISSION BUT WILL NOT BE ABLE TO GET ANYTHING FROM INSURANCE UNTIL SATURDAY AT THE EARLIEST. CM FAXED REFERRAL TO [facility], AT [phone]. CM WAITING INSURANCE AUTHORIZATION AND ADMISSION DETERMINATION FROM [facility]. ANITA MURRAY DCP- Discharge Planning Updated by [id number]: Savanna Dorsey on 10/30/18 3:[address] Patient Name: JORGE CORDERO Admission Status: Urgent Accout number: [id number] Admission Date: 10-29-2018 : 0 Admission Diagnosis: Attending: NANO LEAVITT Current LOS: 1 Anticipated DC Date: Planned Disposition: Primary Insurance: [facility] [employer] Discharge Planning Comments: CM met with patient at bedside. Patient stated she lives with her daughter. Patient states she has been in and out of hospital a lot recently. Patient states she plans to return to her home. Patient states she has home 02, nebulizer, walker, cane, and travel wheelchair. Patient states she has had Home Health in past but currently not under their care. Patient denies any discharge needs at this time. CM will continue to follow and assist as needed with discharge planning / needs. Artistic Associate: Savanna Dorsey DCPIA - Discharge Planning Initial Assessment Updated by [id number]: Savanna Dorsey on 10/30/18 4:12 pm * Is the patient Alert and Oriented? Yes * How many steps to enter\\exit or inside your home? RAMP * PCP FREDI JOVEL * Pharmacy [facility] * Preadmission Environment Home with Family * ADLs Partial Dependent * Partial ADLs (Assistance needed) Ambulation * Other Equipment HOME 02, NEBULIZER , WALKER, CANE, TRAVEL W/C * List name and contact numbers for known caregivers / representatives who currently or will assist patient after discharge: DAUGHTER - [phone] * Verbal permission to speak to the caregivers and representatives has been obtained from the patient. Yes * Community resources currently utilized None * Additional services required to return to the preadmission environment? No * Can the patient safely return to the preadmission environment? Yes * Has this patient been hospitalized within the prior 30 days at any hospital? Yes Coverage Notice Reviewer: [id number] Carmela Flynn Notice Issued Date-Time: 11/07/2018 17:00 Notice Type: IM Discharge Notice Notice Delivered To: Patient Relationship to Patient: Barrel Cap Setter Name: Delivery Method: HAND - Hand Delivered Barbara Days: Prior Verbal Notification: Recipient Understood Notice: Yes Recipient Signature: Yes Med Rec Note Co-signed by Attending: Coverage Notice Comment: Last DP export: 11/07/18 4:20 p Patient Name: JORGE CORDERO Page [id number] at 1754 All edits/amendments must be made on the electronic document DICTATION DATE: 11/07/181756 TRIM OPERATOR: FOREST 11/07/181756 RPT#: [id number] DC DATE: STATUS: ADM IN [facility] [address] [place] [address] END OF REPORT
--- NOTE | 2018-11-07 19:36 | NUR ---
AT REST WITH EYES CLOSED WILL DO FURTHER EXAM LATER RESP EVEN AT 18 WITH NO NOTED DISTRESS CONT TO OBSERVE CONTACT ISOLATIN BED IS LOW AND CALL LIGHT IS IN REACH
[2018-11-07 20:00] VITALS: BP 106/48
[2018-11-08] VITALS: BP 108/63
--- NOTE | 2018-11-08 02:45 | NUR ---
I have reviewed this patient and I concur with the Shift Assessment completed by the Licensed Practical Nurse today this shift.
[2018-11-08 04:00] VITALS: BP 96/37
[2018-11-08 05:34] LABS: BASOPHILS 0.2 % (0-2); EOSINOPHILS 0.8 % (0-7); HEMOGLOBIN 9.3 g/dL (12-16); LYMPHOCYTES 25.7 % (15-50); MCH 33.2 pg (26.0-34.0); MCHC 35.8 g/dL (31.0-37.0); MEAN PLATELET VOLUME 10.8 fL (7.4-10.4); MONOCYTES 15.7 % (2-11); NEUTROPHILS 57.6 % (40-80); PLATELET COUNT 129 10x3/uL (130-400); RDW 16.4 % (11.5-14.5)
[2018-11-08 05:39] LABS: ANION GAP 12.4 mmol/L (8-16); CALCIUM 8.5 mg/dL (8.5-10.1); CARBON DIOXIDE 27.5 mmol/L (21.0-32.0); CREATININE - SERUM 3.6 mg/dL (0.6-1.3); POTASSIUM - SERUM 3.9 mmol/L (3.5-5.1)
[2018-11-08 05:41] LABS: MCV 92.9 fL (80.0-100.0); WBC 4.8 10x3/uL (4.8-10.8)
[2018-11-08 08:50] VITALS: BP 124/55
--- NOTE | 2018-11-08 09:24 | NUR ---
RESUMING PT CARE, PT IS LAYING IN BED WITH EYES CLOSED, RESPIRATIONS EVEN AND UNLABORED. CALL LIGHT IS IN REACH, WILL CONTINUE TO MONITOR AND FOLLOW PLAN OF CARE.
--- NOTE | 2018-11-08 10:00 | NUR ---
I have reviewed this patient and I concur with the Shift Assessment completed by the Licensed Practical Nurse today this shift.
--- NOTE | 2018-11-08 15:38 | NUR ---
PT SITTING UP IN BED, ALERT AND ORIENTED. BED IS IN LOWEST POSITON WITH RAILS UP X2, CALL LIGHT IN REACH. WILL CONTINUE TO MONITOR.
[2018-11-08 18:45] VITALS: BP 88/72
--- NOTE | 2018-11-08 19:15 | NUR ---
RECEIVED REPORT, WILL ASSUME CARE OF PT, PT SLEEPING, NO DISTRESS NOTICED AT THIS TIME, BED IS LOW, SRX2, [facility], WILL CONTINUE PLAN OF CARE
[2018-11-08 20:00] VITALS: BP 94/50
[2018-11-09] VITALS: BP 97/59
--- NOTE | 2018-11-09 01:28 | NUR ---
I have reviewed this patient and I concur with the Shift Assessment completed by the Licensed Practical Nurse today this shift.
[2018-11-09 05:08] VITALS: BP 110/50
--- NOTE | 2018-11-09 05:45 | NUR ---
[id number] COVERAGE NEEDED
--- NOTE | 2018-11-09 07:00 | NUR ---
RECEIVED REPORT. ASSUMED CARE OF PATIENT. PATIENT AWAKE, SITTING UP IN BED, SMILING. RESP EVEN AND UNLABORED. DENIES NEEDS AT THIS TIME. CALL LIGHT WITHIN REACH. 1ST STEP OVERLAY PATENT. REMAINS IN CONTACT ISOLATION FOR ECOLI IN URINE PER NURSING REPORT RECEIVED THIS AM.
[2018-11-09 07:39] LABS: BASOPHILS 0.2 % (0-2); EOSINOPHILS 0.9 % (0-7); HEMATOCRIT 25.2 % (36.0-48.0); HEMOGLOBIN 8.9 g/dL (12-16); IMMATURE GRANULOCYTES 0.2 % (0-5); LYMPHOCYTES 26.6 % (15-50); MCH 33.2 pg (26.0-34.0); MCHC 35.3 g/dL (31.0-37.0); MEAN PLATELET VOLUME 11.3 fL (7.4-10.4); NEUTROPHILS 55.1 % (40-80); PLATELET COUNT 101 10x3/uL (130-400); RBC 2.68 10x6/uL (4.00-5.40); RDW 16.3 % (11.5-14.5); WBC 4.4 10x3/uL (4.8-10.8)
[2018-11-09 07:42] LABS: ANION GAP 11.6 mmol/L (8-16); CALCIUM 8.2 mg/dL (8.5-10.1); CARBON DIOXIDE 28.1 mmol/L (21.0-32.0); CREATININE - SERUM 3.3 mg/dL (0.6-1.3); POTASSIUM - SERUM 3.7 mmol/L (3.5-5.1)
[2018-11-09 07:46] LABS: TOTAL IRON BIND CAPACITY 253 ug/dl (260-445)
[2018-11-09 08:07] LABS: % SATURATION 18 % (15-55); IRON 47 ug/dl (35-150); UNSAT IRON BIND CAPACITY 206 ug/dl (150-375)
[2018-11-09 09:04] VITALS: BP 90/48
[2018-11-09 11:11] VITALS: BP 93/42
--- NOTE | 2018-11-09 11:11 | NUR ---
FSBS 136. NO INSULIN PER SLIDING SCALE. PATIENT DENIES NEEDS AT THIS TIME. EYES CLOSED AND RESTING PEACEFULLY AFTER FINISHING WITH FSBS CHECK AT THIS TIME. CALL LIGHT WITHIN REACH.
--- NOTE | 2018-11-09 14:48 | NUR ---
SITTING UP IN BED WITH ATTENTION TOWARD THE TELEVISION. CALL LIGHT WITHIN REACH. DENIES NEEDS. BATH AND LINEN CHANGE COMPLETE. NO DISTRESS.
--- NOTE | 2018-11-09 16:26 | NUR ---
FSBS 116. NO INSULIN PER SLIDING SCALE.
[2018-11-09 16:42] VITALS: BP 104/49
--- NOTE | 2018-11-09 19:43 | NUR ---
EVENING ROUNDS COMPLETED. REPORT RECEIVED. PT SITTING UP IN BED WITH EYES OPEN, RR EVEN AND UNLABORED. OXYGEN AT 2 LITERS BY NASAL CANNULA. BED IN LOW POSITION. AAO, INTRODUCED SELF TO PT. PT REQUESTED TO BE ADJUSTED IN BED, ASSISTED BY CORTEZ HDZ LPN. NO S/S OF DISTRESS NOTED. CALL LIGHT IN REACH. WILL CTM.
[2018-11-09 20:04] VITALS: BP 94/45
[2018-11-10] VITALS (7 sets, daily range): BP systolic 103–122; BP diastolic 48–82
--- NOTE | 2018-11-10 02:53 | NUR ---
I have reviewed this patient and I concur with the Shift Assessment completed by the Licensed Practical Nurse today this shift.
[2018-11-10 05:56] LABS: BASOPHILS 0.2 % (0-2); EOSINOPHILS 0.5 % (0-7); HEMATOCRIT 25.2 % (36.0-48.0); HEMOGLOBIN 8.9 g/dL (12-16); IMMATURE GRANULOCYTES 0.2 % (0-5); LYMPHOCYTES 23.4 % (15-50); MCH 33.1 pg (26.0-34.0); MCHC 35.3 g/dL (31.0-37.0); MCV 93.7 fL (80.0-100.0); MEAN PLATELET VOLUME 10.7 fL (7.4-10.4); MONOCYTES 16.7 % (2-11); PLATELET COUNT 113 10x3/uL (130-400); RBC 2.69 10x6/uL (4.00-5.40); RDW 15.7 % (11.5-14.5); WBC 5.5 10x3/uL (4.8-10.8)
[2018-11-10 06:15] LABS: ANION GAP 11.7 mmol/L (8-16); CALCIUM 8.1 mg/dL (8.5-10.1); CARBON DIOXIDE 28.2 mmol/L (21.0-32.0); CREATININE - SERUM 3.8 mg/dL (0.6-1.3); POTASSIUM - SERUM 3.9 mmol/L (3.5-5.1)
--- NOTE | 2018-11-10 08:05 | NUR ---
RECIEVED BEDSIDE REPORT. AM ROUNDS COMPLETED. VSS, AAOX4, NO S/S OF RR DISTRESS. GENERALZED SWELLING NOTED. IMAGING SPECIALIST NOTIFIED ME THAT PT SBP IS 187. RECHECKED, BP NOW IS 127/67. WILL CTM. AM MEDS GIVEN AT THIS TIME. WILL CPOC. CL IN REACH, BED IN LOW, SR UP X2.
--- NOTE | 2018-11-10 12:00 | NUR ---
JAMESON KRISHNAN FROM [facility] IN PT'S ROOM, EVALUATING PT. PT CURRENTLY RESTING IN BED. WILL CPOC.
--- NOTE | 2018-11-10 14:00 | MORECARE ---
CASE MANAGEMENT DISCHARGE SUMMARY PATIENT: JORGE CORDERO UNIT: [id number] ADM DATE: 10/29/18 AGE: 88 : [birth year] SEX: F ROOM/BED: D.2103 AUTHOR: WALDEMAR,DOC PHYSICIAN: REFERRING PHYSICIAN: NANO LEAVITT MD DATE OF SERVICE: 11/10/18 Discharge Plan Patient Name: JORGE CORDERO Facility: [facility]:[place] : 1930 Planned Disposition: Senior Report Developer Acute Care Facility Anticipated Discharge Date: 11/10/18 Discharge Date: Expected LOS: 12 Initial Reviewer: [id number] Initial Review Date: 10/30/2018 Generated: 11/10/18 2:59 pm Comments DCP- Discharge Planning Updated by [id number]: Denis Turner on 11/10/18 12:[address] Patient Name: JORGE CORDERO Encounter No: [id number] : 1930 Primary Insurance: [facility] MEDICARE SOLUTIONS Anticipated DC Date: 11-10-2018 Planned Disposition: Correction Acute Care Facility External Planned Provider: [facility] DCP follow-up note: CM MET WITH JAMESON SAL, CLINICAL NAVIGATOR FOR [facility], WHO HAS MET WITH PT AND WILL BE COMPLETING SCREEN FOR LTACH ADMISSION. IT APPEARS THAT PT HAS HAD SIGNIFICANT IMPROVEMENT AND MAY NOT QUALIFY FOR [facility] AND MAY BE MORE APPROPRIATE FOR GROUP HOME PLACEMENT. JAMESON REPORTS PT HAS ALREADY BEEN ACCEPTED BY [facility] IN [place] FOR OUTPATIENT DIALYSIS. JAMESON WILL COMPLETE SCREENING AND NOTIFY CM SOON POSSIBLE OF ADMISSION DETERMINATION. CM WAITING INSURANCE AUTHORIZATION AND ADMISSION DETERMINATION FROM [facility]. DENIS TURNER CASE RUMA DCP- Discharge Planning Updated by [id number]: Denis Turner on 11/07/18 4:[address] Patient Name: JORGE CORDERO Encounter No: [id number] : 1930 Primary Insurance: [facility] MEDIC[facility] SOLUTIONS Anticipated DC Date: 11-10-2018 Planned Disposition: Correction Acute Care Facility External Planned Provider: [facility] DCP follow-up note: CM RECEIVED LTACH ORDER, MET WITH PT IN ROOM AND DISCUSSED [facility] ([facility]), LOCATIONS AND PROVIDERS. PT REPORTS SHE WANTS TO GO BACK TO [facility] IN [place]. CM ADVISED THAT CM WILL SEND REFERRAL, PT STATES "THEY SAID THEY WOULD TAKE ME BACK". CM EXPLAINED THAT [facility] WILL HAVE TO EVALUATE AND SUBMIT TO PT'S INSURANCE FOR APPROVAL. PT STATES UNDERSTANDING. IMPORTANT MESSAGE FROM MEDICARE PROVIDED AND EXPLAINED. CM CALLED [facility], , SPOKE TO DIANDRA WHO INFORMED CM THAT THEY WILL SCREEN FOR ADMISSION BUT WILL NOT BE ABLE TO GET ANYTHING FROM INSURANCE UNTIL SATURDAY AT THE EARLIEST. CM FAXED REFERRAL TO [facility], AT [phone]. CM WAITING INSURANCE AUTHORIZATION AND ADMISSION DETERMINATION FROM [facility]. DENIS TURNER, CASE MANAGEMENT DCP- Discharge Planning Updated by [id number]: Savanna Dorsey on 10/30/18 3:[address] Patient Name: JORGE CORDERO Admission Status: Urgent Accout number: [id number] Admission Date: 10-29-2018 : 1930 Admission Diagnosis: Attending: NANO LEAVITT Current LOS: 1 Anticipated DC Date: Planned Disposition: Primary Insurance: [facility] MEDICARE SOLUTIONS Discharge Planning Comments: CM met with patient at bedside. Patient stated she lives with her daughter. Patient states she has been in and out of hospital a lot recently. Patient states she plans to return to her home. Patient states she has home 02, nebulizer, walker, cane, and travel wheelchair. Patient states she has had Home Health in past but currently not under their care. Patient denies any discharge needs at this time. CM will continue to follow and assist as needed with discharge planning / needs. Dishcloth Folder: Savanna Dorsey DCPIA - Discharge Planning Initial Assessment Updated by [id number]: Savanna Dorsey on 10/30/18 4:12 pm * Is the patient Alert and Oriented? Yes * How many steps to enter\\exit or inside your home? RAMP * PCP FREDI JOVEL * Pharmacy [facility] * Preadmission Environment Home with Family * ADLs Partial Dependent * Partial ADLs (Assistance needed) Ambulation * Other Equipment HOME 02, NEBULIZER , WALKER, CANE, TRAVEL W/C * List name and contact numbers for known caregivers / representatives who currently or will assist patient after discharge: DAUGHTER - [phone] * Verbal permission to speak to the caregivers and representatives has been obtained from the patient. Yes * Community resources currently utilized None * Additional services required to return to the preadmission environment? No * Can the patient safely return to the preadmission environment? Yes * Has this patient been hospitalized within the prior 30 days at any hospital? Yes Coverage Notice Reviewer: [id number] Carmela Denis Turner Notice Issued Date-Time: 11/07/2018 17:00 Notice Type: IM Discharge Notice Notice Delivered To: Patient Relationship to Patient: Physician Office Assistant Name: Delivery Method: HAND - Hand Delivered Barbara Days: Prior Verbal Notification: Recipient Understood Notice: Yes Recipient Signature: Med Rec Note Co-signed by Attending: Coverage Notice Comment: Last DP export: 11/07/18 4:57 p Patient Name: JORGE CORDERO Page [id number] at 1400 All edits/amendments must be made on the electronic document DICTATION DATE: 11/10/18 135 MANAGED CARE ANALYST: FOREST 11/10/18 1359 RPT#: [id number] DC DATE: STATUS: ADM IN [facility] [address] [place] [address] END OF REPORT
--- NOTE | 2018-11-10 19:30 | NUR ---
RECEIVED REPORT, WILL ASSUME CARE OF PT, ASKING FOR TYLENOL WHEN I BRING 2100 MEDS, WILL DO, DENIES ANY OTHER NEEDS, BED IS LOW, SRX2, CALL LIGHT IN REAC, WILL CONTINUE PLAN OF CARE
--- NOTE | 2018-11-10 21:00 | NUR ---
GAVE TYLENOL, BS-125-NO COVERAGE NEEDED-GAVE CRANBERRY JUICE
--- NOTE | 2018-11-11 04:38 | NUR ---
I have reviewed this patient and I concur with the Shift Assessment completed by the Licensed Practical Nurse today this shift.
[2018-11-11 05:05] VITALS: BP 123/46
[2018-11-11 06:02] LABS: BASOPHILS 0.2 % (0-2); EOSINOPHILS 0.8 % (0-7); HEMATOCRIT 25.8 % (36.0-48.0); HEMOGLOBIN 9.1 g/dL (12-16); IMMATURE GRANULOCYTES 0.2 % (0-5); LYMPHOCYTES 28.7 % (15-50); MCH 32.9 pg (26.0-34.0); MCHC 35.3 g/dL (31.0-37.0); MCV 93.1 fL (80.0-100.0); MEAN PLATELET VOLUME 11.2 fL (7.4-10.4); MONOCYTES 16.3 % (2-11); NEUTROPHILS 53.8 % (40-80); PLATELET COUNT 130 10x3/uL (130-400); RBC 2.77 10x6/uL (4.00-5.40); RDW 15.4 % (11.5-14.5); WBC 5.1 10x3/uL (4.8-10.8)
[2018-11-11 06:31] LABS: ANION GAP 14.7 mmol/L (8-16); CALCIUM 8.4 mg/dL (8.5-10.1); CARBON DIOXIDE 25.4 mmol/L (21.0-32.0); POTASSIUM - SERUM 4.1 mmol/L (3.5-5.1)
--- NOTE | 2018-11-11 07:00 | NUR ---
RECEIVED REPORT. ASSUMED CARE OF PATIENT. PATIENT WITH EYES OPEN, WAVING AT NURSES IN DOORWAY. PATIENT REMAINS ON CONTACT ISOLOATION FOR ECOLI IN URINE. PATIENT DENIES NEEDS AT THIS TIME. TELEMETRY PATENT, PACEMAKER, PVC'S, RATE 75. NO DISTRESS.
[2018-11-11 09:17] VITALS: BP 108/43
--- NOTE | 2018-11-11 11:24 | NUR ---
FSBS 86. NO INSULIN REQUIRED PER SLIDING SCALE.
[2018-11-11 12:27] VITALS: BP 124/109
--- NOTE | 2018-11-11 14:12 | NUR ---
Nutrition follow-up: diet: Renal PO intake has improved a little bit; now ~40% average of last 6 meals Labs reviewed Wt: 206# RDN following.
[2018-11-11 16:21] VITALS: BP 91/33
--- NOTE | 2018-11-11 16:33 | NUR ---
FSBS 93. NO COVERAGE PER SLIDING SCALE. PATIENT RECEIVING DIALYSIS AT BEDSIDE AT THIS TIME. NO DISTRESS.
--- NOTE | 2018-11-11 17:22 | NUR ---
PATIENT RECEIVING DIALYSIS AT BEDSIDE. BP 92/30. BUMEX HELD FOR DIALYSIS AND DUE TO PRESSURE LOW. PATIENT ALERT. CALL LIGHT WITHIN REACH.
--- NOTE | 2018-11-11 19:45 | NUR ---
PATIENT LAYING IN BED, ALERT AND ORIENTED. PATIENT HAS NO COMPLAINTS AT THIS TIME. NO DISTRESS NOTED.
[2018-11-11 20:00] VITALS: BP 101/50
--- NOTE | 2018-11-11 22:58 | NUR ---
PATIENT LAYING IN BED. EYES CLOSED, CHEST RISING AND FALLING. NO DISTRESS NOTED.
[2018-11-12] VITALS: BP 106/67
--- NOTE | 2018-11-12 00:55 | NUR ---
PATIENT LAYING IN BED WITH EYES CLOSED, CHEST RISING AND FALLING. NO DISTRESS NOTED.
--- NOTE | 2018-11-12 02:24 | NUR ---
I have reviewed this patient and I concur with the Shift Assessment completed by the Licensed Practical Nurse today this shift. CAF 76
--- NOTE | 2018-11-12 02:31 | NUR ---
PATIENT LAYING IN BED, EYES CLOSED, CHEST RISING AND FALLING. NO DISTRESS NOTED.
[2018-11-12 04:00] VITALS: BP 111/61
[2018-11-12 05:40] LABS: BASOPHILS 0.2 % (0-2); EOSINOPHILS 0.5 % (0-7); HEMATOCRIT 25.3 % (36.0-48.0); HEMOGLOBIN 8.8 g/dL (12-16); LYMPHOCYTES 21.5 % (15-50); MCH 32.6 pg (26.0-34.0); MCHC 34.8 g/dL (31.0-37.0); MCV 93.7 fL (80.0-100.0); NEUTROPHILS 64.8 % (40-80); RDW 15.3 % (11.5-14.5); WBC 4.2 10x3/uL (4.8-10.8)
[2018-11-12 06:07] LABS: ANION GAP 11.9 mmol/L (8-16); CARBON DIOXIDE 28.6 mmol/L (21.0-32.0); CREATININE - SERUM 3.2 mg/dL (0.6-1.3); POTASSIUM - SERUM 3.5 mmol/L (3.5-5.1)
[2018-11-12 06:25] LABS: PLATELET COUNT 93 10x3/uL (130-400)
[2018-11-12 08:33] LABS: CRENATED CELLS OCC; HYPOCHROMASIA 1+; PLATELET ESTIMATE DECREASED
[2018-11-12 08:34] LABS: TARGET CELLS OCC
[2018-11-12 09:23] VITALS: BP 104/53
[2018-11-12 13:01] VITALS: BP 131/108
[2018-11-12] MEDS ORDERED: ZOSYN 2.25 GM2.25 G1 IV (15:02)
[2018-11-12] MEDS ORDERED: PEPCID PO (15:02)
[2018-11-12] MEDS ORDERED: LANOXIN125 MCG PO (15:02)
[2018-11-12] MEDS ORDERED: JANUVIA50 MG PO (15:03)
[2018-11-12] MEDS ORDERED: HUMALOG 30100 UNITS/ SC (15:03)
--- NOTE | 2018-11-12 15:32 | NUR ---
CALLED REPORT TO [facility] IN [place]. PT IS BEING TRANSFERRED TO ROOM 229. FACILITY NUMBER IS [phone]
--- NOTE | 2018-11-12 16:23 | NUR ---
FAXED ORDER FOR VANCOMYCIN 1G WITH DIALYSIS X 5 DOSES TO [facility] AND SENT COPY OF ORDER TO [facility]
--- NOTE | 2018-11-12 16:57 | NUR ---
CALLED [employer] AND THEY ESTIMATED TIME ABOUT 45MINS. DISCUSSED WITH PRIMARY NURSE. NO CURRENT NEEDS. PCS FORM SIGNED AND READY.
--- NOTE | 2018-11-12 17:49 | MORECARE ---
CASE MANAGEMENT DISCHARGE SUMMARY PATIENT: JORGE CORDERO UNIT: [id number] ADM DATE: 10/29/18 AGE: 88 : [birth year] SEX: F ROOM/BED: D.210 AUTHOR: WALDEMAR,DOC PHYSICIAN: REFERRING PHYSICIAN: NANO LEAVITT MD DATE OF SERVICE: 11/12/18 Discharge Plan Patient Name: JORGE CORDERO Facility: [facility]:[place] : 1930 Planned Disposition: Heel Attacher Acute Care Facility Anticipated Discharge Date: 11/10/18 Discharge Date: Expected LOS: 12 Initial Reviewer: [id number] Initial Review Date: 10/30/2018 Generated: 11/12/18 6:48 pm Comments DCP- Discharge Planning Updated by [id number]: Stefania Cruz on 11/12/18 4:[address] @ 1138, JAMESON SAL HERE FROM [facility]. HE HAS QUESTIONED WHAT IS BEING DONE IN REGARDS TO THE PATIENT UTI. I EXPLAINED THAT IT WAS MY UNDERSTANDING THAT IT WAS TREATED AT THEIR FACILITY, AND HE STATED THAT SHE DID NOT HAVE THE UTI AT THEIR FACILITY. I LOOKED CLOSER THROUGH THE CHART AND NOTED THAT THE PATIENT HAS NOT BEEN ON ANTIBIOTICS HERE. I SPOKE WITH SLADE MARIE APN ABOUT THIS AND SHE STATED SHE WAS GETTING IWTH RENAL AND WILL LET ME KNOW. JAMESON STATED THAT THEY HAVE INSURANCE AUTHORIZATION TO BEING THE PATIENT BACK, BUT NEED TREATEMENT FOR THE UTI IN ORDER TO GET THE COMPANY TO SAY YES. ONCE I GOT ANTIBIOTIC ORDERS, THEY WERE PRINTED OFF FOR HIM. @ [address] WAS TOLD THAT DR CASTILLO HAS ACCEPTED THE PATIENT AND THEY ARE WAITING FOR A BED. HE STATED THAT THEY ARE HAVING TO MOVE PATIENTS AROUND TO ACCOMIDATE THE ISOLATION. THERE WAS QUESTION ABOUT TRANSPORT AND THE PATIENT WILL BE GOING VIA AMBULANCE. @8830 JAMESON CALLED BACK AND STATED THAT THE PATIENT WOULD BE GOING TO ROOM 229, REPORT TO BE CALLED TO [phone]. THIS INFORMATION WAS RELAYED TO THE BEDSIDE NURSE PK SHARP AND THE SENIOR TECHNICAL MANAGER WELL THE PATIENT AND DAUGHTER AT BEDSIDE. NURSE TO TELL DAUGHTER ETA OF [place]. NO FURTHER NEEDS EXPRESSED. DCP- Discharge Planning Updated by [id number]: Denis Turner on 11/10/18 12:[address] Patient Name: JORGE CORDERO Encounter No: [id number] : 1930 Primary Insurance: [facility] MEDICARE SOLUTIONS Anticipated DC Date: 11-10-2018 Planned Disposition: Residential Acute Care Facility External Planned Provider: [facility] DCP follow-up note: CM MET WITH JAMESON SAL, CLINICAL NAVIGATOR FOR [facility], WHO HAS MET WITH PT AND WILL BE COMPLETING SCREEN FOR LTACH ADMISSION. IT APPEARS THAT PT HAS HAD SIGNIFICANT IMPROVEMENT AND MAY NOT QUALIFY FOR [facility]UTE [facility] AND MAY BE MORE APPROPRIATE FOR [facility] PLACEMENT. JAMESON REPORTS PT HAS ALREADY BEEN ACCEPTED BY [facility] [place] FOR OUTPATIENT DIALYSIS. JAMESON WILL COMPLETE SCREENING AND NOTIFY CM SOON POSSIBLE OF ADMISSION DETERMINATION. CM WAITING INSURANCE AUTHORIZATION AND ADMISSION DETERMINATION FROM [facility]. DENIS TURNER, CASE MANAGEMENT DCP- Discharge Planning Updated by [id number]: Denis Turner on 11/07/18 4:[address] Patient Name: JORGE CORDERO Encounter No: [id number] : 1930 Primary Insurance: [facility] MEDICARE SOLUTIONS Anticipated DC Date: 11-10-2018 Planned Disposition: Residential Acute Care Facility External Planned Provider: [facility] DCP follow-up note: CM RECEIVED LTACH ORDER, MET WITH PT IN ROOM AND DISCUSSED [facility] ([facility]), LOCATIONS AND PROVIDERS. PT REPORTS SHE WANTS TO GO BACK TO [facility] IN [place]. CM ADVISED THAT CM WILL SEND REFERRAL, PT STATES "THEY SAID THEY WOULD TAKE ME BACK". CM EXPLAINED THAT [facility] WILL HAVE TO EVALUATE AND SUBMIT TO PT'S INSURANCE FOR APPROVAL. PT STATES UNDERSTANDING. IMPORTANT MESSAGE FROM MEDICARE PROVIDED AND EXPLAINED. CM CALLED [facility], , SPOKE TO DIANDRA WHO INFORMED CM THAT THEY WILL SCREEN FOR ADMISSION BUT WILL NOT BE ABLE TO GET ANYTHING FROM INSURANCE UNTIL SATURDAY AT THE EARLIEST. CM FAXED REFERRAL TO [facility], AT [phone]. CM WAITING INSURANCE AUTHORIZATION AND ADMISSION DETERMINATION FROM [facility]. DENIS TURNER, CASE MANAGEMENT DCP- Discharge Planning Updated by [id number]: Savanna Dorsey on 10/30/18 3:[address] Patient Name: JORGE CORDERO Admission Status: Urgent Accout number: [id number] Admission Date: 10-29-2018 : 111930 Admission Diagnosis: Attending: NANO LEAVITT Current LOS: 1 Anticipated DC Date: Planned Disposition: Primary Insurance: [facility] MEDIC[facility] SOLUTIONS Discharge Planning Comments: CM met with patient at bedside. Patient stated she lives with her daughter. Patient states she has been in and out of hospital a lot recently. Patient states she plans to return to her home. Patient states she has home 02, nebulizer, walker, cane, and travel wheelchair. Patient states she has had Home Health in past but currently not under their care. Patient denies any discharge needs at this time. CM will continue to follow and assist as needed with discharge planning / needs. Game Programmer: Savanna Dorsey DCPIA - Discharge Planning Initial Assessment Updated by [email or web address]: Savanna Dorsey on 10/30/18 4:12 pm * Is the patient Alert and Oriented? Yes * How many steps to enter\\exit or inside your home? RAMP * PCP FREDI JOVEL * Pharmacy [facility] * Preadmission Environment Home with Family * ADLs Partial Dependent * Partial ADLs (Assistance needed) Ambulation * Other Equipment HOME 02, NEBULIZER , WALKER, CANE, TRAVEL W/C * List name and contact numbers for known caregivers / representatives who currently or will assist patient after discharge: DAUGHTER - [phone] * Verbal permission to speak to the caregivers and representatives has been obtained from the patient. Yes * Community resources currently utilized None * Additional services required to return to the preadmission environment? No * Can the patient safely return to the preadmission environment? Yes * Has this patient been hospitalized within the prior 30 days at any hospital? Yes Coverage Notice Reviewer: [email or web address] Carmela Turner Notice Issued Date-Time: 11/07/2018 17:00 Notice Type: IM Discharge Notice Notice Delivered To: Patient Relationship to Patient: Diamond Sander Name: Delivery Method: HAND - Hand Delivered Barbara Days: Prior Verbal Notification: Recipient Understood Notice: Yes Recipient Signature: Med Rec Note Co-signed by Attending: Coverage Notice Comment: Last DP export: 11/10/18 1:00 pm Patient Name: JORGE CORDERO Page [id number] at 1748 All edits/amendments must be made on the electronic document DICTATION DATE: 11/12/181747 COMPLEMENTARY HEALTH THERAPISTS: FOREST 11/12/181747 RPT#: [id number] DC DATE: STATUS: ADM IN [facility] [address] [place] [address] END OF REPORT
--- NOTE | 2018-11-12 19:53 | NUR ---
AMBULANCE SERVIVE FINALLY HERE FOR PT. ALL BELONGINGS COLLECTED AND SENT WITH PT. ASSISTED TRUCK HOP GETTING HER ON STRETCHER. NO FURTHER NEEDS.
--- NOTE | 2018-11-13 17:58 | MORECARE ---
CASE MANAGEMENT DISCHARGE SUMMARY PATIENT: JORGE CORDERO UNIT: [id number] ADM DATE: 10/29/18 AGE: 88 : [birth year] SEX: F ROOM/BED: D.2102 AUTHOR: WALDEMAR,DOC PHYSICIAN: REFERRING PHYSICIAN: NANO LEAVITT MD DATE OF SERVICE: 11/13/18 Discharge Plan Patient Name: JORGE CORDERO Facility: [facility]:[place] : 1930 Planned Disposition: [facility] Acute [facility] Facility Anticipated Discharge Date: 11/10/18 Discharge Date: 11/12/2018 Expected LOS: 12 Initial Reviewer: [id number] Initial Review Date: 10/30/2018 Generated: 11/13/18 6:58 pm Comments DCP- Discharge Planning Updated by [id number]: Stefania Cruz on 11/12/18 4:[address] @ 1138, JAMESON SAL HERE FROM [facility]. HE HAS QUESTIONED WHAT IS BEING DONE IN REGARDS TO THE PATIENT UTI. I EXPLAINED THAT IT WAS MY UNDERSTANDING THAT IT WAS TREATED AT THEIR FACILITY, AND HE STATED THAT SHE DID NOT HAVE THE UTI AT THEIR FACILITY. I LOOKED CLOSER THROUGH THE CHART AND NOTED THAT THE PATIENT HAS NOT BEEN ON ANTIBIOTICS HERE. I SPOKE WITH SLADE MARIE APN ABOUT THIS AND SHE STATED SHE WAS GETTING IWTH RENAL AND WILL LET ME KNOW. JAMESON STATED THAT THEY HAVE INSURANCE AUTHORIZATION TO BEING THE PATIENT BACK, BUT NEED TREATEMENT FOR THE UTI IN ORDER TO GET THE COMPANY TO SAY YES. ONCE I GOT ANTIBIOTIC ORDERS, THEY WERE PRINTED OFF FOR HIM. @ [address] I WAS TOLD THAT DR CASTILLO HAS ACCEPTED THE PATIENT AND THEY ARE WAITING FOR A BED. HE STATED THAT THEY ARE HAVING TO MOVE PATIENTS AROUND TO ACCOMIDATE THE ISOLATION. THERE WAS QUESTION ABOUT TRANSPORT AND THE PATIENT WILL BE GOING VIA AMBULANCE. @3093 JAMESON CALLED BACK AND STATED THAT THE PATIENT WOULD BE GOING TO ROOM 229, REPORT TO BE CALLED TO [phone]. THIS INFORMATION WAS RELAYED TO THE BEDSIDE NURSE PK SHARP AND THE BRAKE OPERATOR WELL THE PATIENT AND DAUGHTER AT BEDSIDE. NURSE TO TELL DAUGHTER ETA OF [place]. NO FURTHER NEEDS EXPRESSED. DCP- Discharge Planning Updated by [id number]: Denis Turner on 11/10/18 12:[address] Patient Name: JORGE CORDERO Encounter No: [id number] : 1930 Primary Insurance: [facility] MEDIC[facility] SOLUTIONS Anticipated DC Date: 11-10-2018 Planned Disposition[facility] External Planned Provider: [facility] DCP follow-up note: CM MET WITH JAMESON SAL, CLINICAL NAVIGATOR FOR [facility], WHO HAS MET WITH PT AND WILL BE COMPLETING SCREEN FOR LTACH ADMISSION. IT APPEARS THAT PT HAS HAD SIGNIFICANT IMPROVEMENT AND MAY NOT QUALIFY FOR RN TESTING ACUTE CARE AND MAY BE MORE APPROPRIATE FOR FDC PLACEMENT. JAMESON REPORTS PT HAS ALREADY BEEN ACCEPTED BY [facility] IN [place] FOR OUTPATIENT DIALYSIS. JAMESON WILL COMPLETE SCREENING AND NOTIFY CM SOON POSSIBLE OF ADMISSION DETERMINATION. CM WAITING INSURANCE AUTHORIZATION AND ADMISSION DETERMINATION FROM [facility]. DENIS TURNER, CASE MANAGEMENT DCP- Discharge Planning Updated by [id number]: Denis Turner on 11/07/18 4:[address] Patient Name: JORGE CORDREO Encounter No: [id number] : 1930 Primary Insurance: [facility] MEDIC[employer] SOLUTIONS Anticipated DC Date: 11-10-2018 Planned Disposition: [facility] External Planned Provider: [facility] DCP follow-up note: CM RECEIVED LTACH ORDER, MET WITH PT IN ROOM AND DISCUSSED [facility] ([facility]), LOCATIONS AND PROVIDERS. PT REPORTS SHE WANTS TO GO BACK TO [facility] IN [place]. CM ADVISED THAT CM WILL SEND REFERRAL, PT STATES "THEY SAID THEY WOULD TAKE ME BACK". CM EXPLAINED THAT [facility] WILL HAVE TO EVALUATE AND SUBMIT TO PT'S INSURANCE FOR APPROVAL. PT STATES UNDERSTANDING. IMPORTANT MESSAGE FROM MEDICARE PROVIDED AND EXPLAINED. CM CALLED [facility], , SPOKE TO DIANDRA WHO INFORMED CM THAT THEY WILL SCREEN FOR ADMISSION BUT WILL NOT BE ABLE TO GET ANYTHING FROM INSURANCE UNTIL SATURDAY AT THE EARLIEST. CM FAXED REFERRAL TO [facility], AT [phone]. CM WAITING INSURANCE AUTHORIZATION AND ADMISSION DETERMINATION FROM [facility]. DENIS TURNER, CASE MANAGEMENT DCP- Discharge Planning Updated by [id number]: Savanna Dorsey on 10/30/18 3:[address] Patient Name: JORGE CORDERO Admission Status: Urgent Accout number: [id number] Admission Date: 10-29-2018 : 1930 Admission Diagnosis: Attending: NANO LEAVITT Current LOS: 1 Anticipated DC Date: Planned Disposition: Primary Insurance: [facility] MEDIC[employer] SOLUTIONS Discharge Planning Comments: CM met with patient at bedside. Patient stated she lives with her daughter. Patient states she has been in and out of hospital a lot recently. Patient states she plans to return to her home. Patient states she has home 02, nebulizer, walker, cane, and travel wheelchair. Patient states she has had Home Health in past but currently not under their care. Patient denies any discharge needs at this time. CM will continue to follow and assist as needed with discharge planning / needs. Hearse Driver: Savanna JUAN - Discharge Planning Initial Assessment Updated by [id number]: Savanna Dorsey on 10/30/18 4:12 pm * Is the patient Alert and Oriented? Yes * How many steps to enter\\exit or inside your home? RAMP * PCP FREDI JOVEL * Pharmacy [facility] * Preadmission Environment Home with Family * ADLs Partial Dependent * Partial ADLs (Assistance needed) Ambulation * Other Equipment HOME 02, NEBULIZER , WALKER, CANE, TRAVEL W/C * List name and contact numbers for known caregivers / representatives who currently or will assist patient after discharge: DAUGHTER - [phone] * Verbal permission to speak to the caregivers and representatives has been obtained from the patient. Yes * Community resources currently utilized None * Additional services required to return to the preadmission environment? No * Can the patient safely return to the preadmission environment? Yes * Has this patient been hospitalized within the prior 30 days at any hospital? Yes Coverage Notice Reviewer: [id number] - Denis Turner Notice Issued Date-Time: 11/07/2018 17:00 Notice Type: IM Discharge Notice Notice Delivered To: Patient Relationship to Patient: Regional Ehs Manager Name: Delivery Method: HAND - Hand Delivered Barbara Days: Prior Verbal Notification: Recipient Understood Notice: Yes Recipient Signature: Oj Rec Note Co-signed by Attending: Coverage Notice Comment: Last DP export: 11/12/18 4:48 pm Patient Name: JORGE CORDERO Page [id number] at 1758 All edits/amendments must be made on the electronic document DICTATION DATE: 11/13/181757 BAG HANGER: FOREST 11/13/181757 RPT#: [id number] DC DATE:11/12/18 STATUS: DIS IN [facility] [address] [place] [address] END OF REPORT
== END 2018-11-12 19:53 | DRG 682 ==
LOC: D.ICU 17:22 → D.M2 11-03 17:48
PROVIDERS: Internal Medicine Nephrology; ADMIT Family Medicine; ATTEND Family Medicine
DX: N17.0 Acute kidney failure with tubular necrosis (principal); I50.43 Acute on chronic combined systolic (congestive) and diastolic (congestive) heart failure; I13.2 Hypertensive heart and chronic kidney disease with heart failure and with stage 5 chronic kidney disease, or end stage renal disease; I95.9 Hypotension, unspecified; E11.22 Type 2 diabetes mellitus with diabetic chronic kidney disease; N18.9 Chronic kidney disease, unspecified; E87.5 Hyperkalemia; D69.6 Thrombocytopenia, unspecified; I27.20 Pulmonary hypertension, unspecified; D53.9 Nutritional anemia, unspecified; N18.6 End stage renal disease; Z95.0 Presence of cardiac pacemaker